=== PATIENT | female | born 1995 | race Hispanic/Latino ===

== ENCOUNTER 2022-11-17 11:24 | Emergency (ER) | payer OTHER ==
[~2022-11-17] VITALS: Ht 154.9 cm; Wt 59.0 kg
[2022-11-17] MEDS ORDERED: PROHANCE 279.3MG/ML 15ML VIAL As Ordered ONE (18:19)
[2022-11-17] MEDS ORDERED: ONDANSETRON 4MG 2ML VIAL IV ONE (20:25)
[2022-11-17 21:08] VITALS: BP 103/60
== END 2022-11-17 21:11 | disposition home or self-care (01) ==
LOC: M ED 11:24
DX: H57.02 Anisocoria (principal); F12.10 Cannabis abuse, uncomplicated; F10.10 Alcohol abuse, uncomplicated
CPT/HCPCS: 70553; 96374; 99283; A9576; J2405